=== PATIENT | male | born 1950 | race Caucasian/White ===

== ENCOUNTER 2016-05-26 17:55 | Emergency (ER) | payer MEDICAID ==
[~2016-05-26] VITALS: Ht 180.3 cm; Wt 86.4 kg
[~2016-05-26 17:55] MED LIST: LEVE250T55 PO; LEVE500T53 PO; LISI-661 PO
[2016-05-26 18:46] VITALS: BP 128/85
[2016-05-26] MEDS ORDERED: BACITRACIN 0.9 GM PACKET OINTMENT TP ONE (19:15)
== END 2016-05-26 19:38 | disposition home or self-care (01) ==
LOC: EMS 17:57
DX: S80.02XA Contusion of left knee, initial encounter (principal); S80.01XA Contusion of right knee, initial encounter; M17.0 Bilateral primary osteoarthritis of knee; I10 Essential (primary) hypertension; X58.XXXA Exposure to other specified factors, initial encounter; Y93.89 Activity, other specified; Y92.89 Other specified places as the place of occurrence of the external cause; Y99.8 Other external cause status
CPT/HCPCS: 99283

== ENCOUNTER 2017-01-09 06:08 | Emergency (ER) | payer MEDICAID ==
[~2017-01-09] VITALS: Ht 180.3 cm; Wt 72.0 kg
[2017-01-09] MEDS ORDERED: SODIUM CHLORIDE 0.9% 1,000 ML IV ONE ×2 (06:30→07:45)
[2017-01-09 06:53] LABS: EOSINOPHILS % (AUTO) 0 % (1.0-6.0); HEMATOCRIT 31.8 % (41-53); HEMOGLOBIN 10.8 g/dL (13.5-17.5); LYMPHOCYTES # (AUTO) 0.3 K/uL (1.0-4.8); LYMPHOCYTES % (AUTO) 3.1 % (22.0-44.0); MEAN CORPUSCULAR HEMOGLOBIN 35.1 pg (26.0-34.0); MEAN CORPUSCULAR HGB CONC 33.8 G/dL (31.0-37.0); MEAN CORPUSCULAR VOLUME 104 fL (80-100); MONOCYTES # (AUTO) 0.3 K/uL (0.1-1.0); NEUTROPHILS # (AUTO) 9.8 K/uL (1.8-7.7); PLATELET COUNT (AUTO) 106 K/uL (150-450); RED BLOOD CELL COUNT(AUTO) 3.07 MIL/uL (4.50-5.90); RED CELL DISTRIBUTION WIDTH 16.2 % (11.5-14.5); WHITE BLOOD COUNT (AUTO) 10.4 K/uL (4.5-11.0)
[2017-01-09 06:55] LABS: NEUTROPHILS % (AUTO) 93.9 % (40.0-70.0)
[2017-01-09 06:56] LABS: INR 1.2 (0.9-1.1); PROTHROMBIN TIME 12.8 SEC (9.4-11.6)
[2017-01-09 07:15] LABS: B-TYPE NATRIURETIC PEPTIDE 44 pg/mL (0-100)
[2017-01-09 07:20] LABS: ALANINE AMINOTRANSFERASE 58 U/L (12-78); ALBUMIN 3.2 g/dL (3.4-5.0); ANION GAP 38 mmol/L (8-16); ASPARTATE AMINOTRANSFERASE 187 U/L (15-37); BILIRUBIN,TOTAL 2.1 mg/dL (0.1-1.0); CALCIUM, TOTAL 8.9 mg/dL (8.8-10.5); CHLORIDE 97 mmol/L (98-107); CREATINE KINASE MB 1.9 ng/mL (0-5); CREATINE KINASE, TOTAL 84 U/L (39-308); CREATININE 1.69 mg/dL (0.60-1.30); GLOMERULAR FILTR. RATE CALC 41 mL/min (>60); POTASSIUM 3.9 mmol/L (3.5-5.1); SODIUM SERUM 143 mmol/L (136-145); TOTAL PROTEIN, SERUM 7.2 g/dL (6.4-8.2); UREA NITROGEN, BLOOD 19 mg/dL (7-18)
[2017-01-09 07:24] LABS: CARBON DIOXIDE 8 mmol/L (22-29)
[2017-01-09 07:25] LABS: RBC MORPHOLOGY COMMENT ABNORMAL RBC MORPH
[2017-01-09 07:53] LABS: ABG A-A DIFF O2 31.6 mmHg (10-20.0); ABG BASE EXCESS -19.4 mmol/L (-2.0-3.0); ABG HCO3 11.6 mmol/L (22.0-26.0); ABG OXYHEMOGLOBIN 95.5 % (94.0-100.0); ABG PCO2 13 mmHg (35-45); ABG PH 7.321 (7.35-7.450); ALLEN TEST, BLOOD GAS Positive; TEMPERATURE, FAHRENHEIT, BG 98.6 FAHREN (96.0-98.6)
[2017-01-09 08:10] VITALS: BP 91/64
[2017-01-09 08:36] LABS: LACTIC ACID 12.5 mmol/L (0.4-2.0)
[2017-01-09 09:53] LABS: REFLEX LACTIC ACID? YES YES
== END 2017-01-09 08:44 | disposition short-term general hospital (02) ==
LOC: EMS 06:10
DX: S06.5X9A Traumatic subdural hemorrhage with loss of consciousness of unspecified duration, initial encounter (principal); I10 Essential (primary) hypertension; E87.2 Acidosis; W19.XXXA Unspecified fall, initial encounter; Y93.89 Activity, other specified; Y92.89 Other specified places as the place of occurrence of the external cause; Y99.8 Other external cause status
CPT/HCPCS: 36415; 70450; 71010; 80053; 82550; 82553; 82803; 82805; 83605; 83880; 84484; 85025; 85610; 85730; 87040; 93005; 96360; 99291; G0480; J7030